=== PATIENT | female | born 1980 | race Two or more races ===

== ENCOUNTER 2016-12-25 10:49 | Inpatient (IN) | payer OTHER ==
[2016-12-24 11:19] VITALS: BMI 42.3
[2016-12-25] MEDS ORDERED: ROCURONIUM BROMIDE 50 MG/5 ML VIAL ONE ×2 (11:16→12:47)
[2016-12-25] MEDS ORDERED: MIDAZOLAM HCL 2 MG/2 ML SINGLE DOSE VIAL ONE (11:17)
[2016-12-25] MEDS ORDERED: DEXAMETHASONE SOD PHOSPHATE 4 MG/1 ML VIAL ONE (11:22)
[2016-12-25] MEDS ORDERED: KETOROLAC TROMETHAMINE 30 MG/1 ML VIAL ONE (11:22)
[2016-12-25] MEDS ORDERED: ceFAZolin SODIUM 1 GM VIAL ONE (11:22)
--- NOTE | 2016-12-25 11:37 | HP ---
History & Physical Update - History History: No Change - Physical Physical: No Change - Assessment Assessment: No Change - Plan Plan: No Change Currently as noted:: Laparoscopic vertical sleeve gastrectomy, fundoplication, EGD
[2016-12-25] MEDS ORDERED: ceFAZolin SODIUM 1 GM VIAL IVPB ONE (12:30)
[2016-12-25] MEDS ORDERED: HYDROmorphone HCL/PF 1 MG/ML VIAL (FOR PYXIS CHARGING ONLY) ONE (13:55)
[2016-12-25] MEDS ORDERED: BUPIVACAINE HCL/PF 0.5% (5MG/ML) 10 ML VIAL ONE (14:35)
[2016-12-25] MEDS ORDERED: BUPIVACAINE HCL/PF 0.5% (5MG/ML) 10 ML VIAL IJ ONE (14:38)
[2016-12-25] MEDS ORDERED: METOPROLOL TARTRATE 5 MG/5 ML VIAL ONE (14:39)
[2016-12-25] MEDS ORDERED: ONDANSETRON 4 MG/2 ML VIAL IVPUSH PRN (14:56)
[2016-12-25] MEDS ORDERED: PROMETHAZINE HCL 25 MG/1 ML VIAL IVPUSH PRN (14:56)
[2016-12-25] MEDS ORDERED: HYDROmorphone HCL CARPU-JECT 1 MG/1 ML DISP.SYRIN IVPB PRN (15:29)
--- NOTE | 2016-12-25 15:29 | OP ---
Operative Note - Note: Operative Date: 12/25/16 Pre-Operative Diagnosis: Morbid obesity. GERD Operation: Laparoscopic vertical sleeve gastrectomy, hiatal hernia repiar, 270 degree fundoplication, upper endocscopy, wedge liver biopsy Findings: No leak, no obstruction Post-Operative Diagnosis: Other (Morbid obesity, GERD, hepatomegaly) Surgeon: Jerry Rea Assembler Carbon Brushes: Karlos Leal Anesthesia: General Specimens Removed: Greater curvature of the stomach, wedge biopsy left lobe of the liver Estimated Blood Loss (mls): 50 Drains & Tubes with Location: 40 Fr Bougie Operative Report Dictated: Yes
[2016-12-25] MEDS ORDERED: ACETAMINOPHEN 1000 MG/100 ML VIAL (NON FORMULARY) IVPB SCH (15:30)
[2016-12-25] MEDS ORDERED: SODIUM CHLORIDE 1,000 ML IV SCH (15:30)
[2016-12-25] MEDS ORDERED: ONDANSETRON 4 MG/2 ML VIAL IVPB SCH (15:30)
[2016-12-25] MEDS ORDERED: METOCLOPRAMIDE HCL INJECTION 10 MG/2 ML VIAL IVPB SCH (15:30)
[2016-12-25] MEDS ORDERED: HYDROmorphone HCL CARPU-JECT 2 MG/1 ML DISP.SYRIN ONE ×2 (15:31→16:36)
[2016-12-25] MEDS: HYDROmorphone HCL CARPU-JECT 1 MG/1 ML DISP.SYRIN IVPUSH PRN ×3 (15:32→16:35)
[2016-12-25] MEDS ORDERED: ACETAMINOPHEN 1000 MG/100 ML VIAL (NON FORMULARY) IVPB ONE (15:45)
[2016-12-25 16:21] LABS: ANION GAP 10 (8-16); CALCIUM 9.2 mg/dL (8.5-10.1); CO2 23 mmol/L (21-32); CREATININE 0.8 mg/dL (0.55-1.02); GLUCOSE,RANDOM 148 mg/dL (74-106)
[2016-12-25 16:29] LABS: BASOPHIL 0.2 % (0-2.0); EOSINOPHIL 0.1 % (0-4.5); MCH 29.6 pg (25.7-33.7); MCHC 32.9 g/dl (32.0-36.0); NEUTROPHILS 93.4 % (42.8-82.8); PLATELET COUNT 258 K/MM3 (134-434); RDW 13.3 % (11.6-15.6); WHITE BLOOD COUNT 16.4 K/mm3 (4.0-10.0)
[2016-12-25] MEDS: SODIUM CHLORIDE 1,000 ML IV SCH ×2 (17:00→21:22)
[2016-12-25] MEDS: HYDROmorphone HCL CARPU-JECT 1 MG/1 ML DISP.SYRIN IVPB PRN ×2 (18:19→21:11)
[2016-12-25] MEDS: ONDANSETRON 4 MG/2 ML VIAL IVPB SCH (20:10)
[2016-12-25] MEDS: ACETAMINOPHEN 1000 MG/100 ML VIAL (NON FORMULARY) IVPB SCH (21:50)
[2016-12-25] MEDS ORDERED: ENOXAPARIN NA (PORCINE) 40 MG/0.4 ML DISP.SYRIN SQ SCH (22:00)
[2016-12-25] MEDS ORDERED: FAMOTIDINE 20 MG/50 ML IVPB 50 ML IVPB SCH (22:00)
[2016-12-25] MEDS: METOCLOPRAMIDE HCL INJECTION 10 MG/2 ML VIAL IVPB SCH (22:25)
[2016-12-25] MEDS: ENOXAPARIN NA (PORCINE) 40 MG/0.4 ML DISP.SYRIN SQ SCH (22:50)
[2016-12-25] MEDS: FAMOTIDINE 20 MG/50 ML IVPB 50 ML IVPB SCH (22:51)
[2016-12-26] MEDS: ONDANSETRON 4 MG/2 ML VIAL IVPB SCH ×6 (00:01→20:31)
[2016-12-26] MEDS: HYDROmorphone HCL CARPU-JECT 1 MG/1 ML DISP.SYRIN IVPB PRN ×3 (00:42→21:26)
[2016-12-26] MEDS: ACETAMINOPHEN 1000 MG/100 ML VIAL (NON FORMULARY) IVPB SCH ×2 (02:38→10:53)
[2016-12-26] MEDS: METOCLOPRAMIDE HCL INJECTION 10 MG/2 ML VIAL IVPB SCH ×4 (04:01→22:14)
[2016-12-26 07:29] LABS: MCH 30.5 pg (25.7-33.7); MCHC 34.2 g/dl (32.0-36.0); MEAN PLT VOLUME 7.6 fl (7.5-11.1); PLATELET COUNT 281 K/MM3 (134-434); RDW 13.2 % (11.6-15.6); WHITE BLOOD COUNT 15.8 K/mm3 (4.0-10.0)
[2016-12-26 08:35] LABS: ALBUMIN 3.6 g/dl (3.4-5.0); ALK PHOS 108 U/L (45-117); ANION GAP 7 (8-16); BILIRUBIN,TOTAL 0.5 mg/dL (0.2-1.0); CALCIUM 8.9 mg/dL (8.5-10.1); CO2 25 mmol/L (21-32); CREATININE 0.6 mg/dL (0.55-1.02); GLUCOSE,RANDOM 69 mg/dL (74-106); SGOT/AST 144 U/L (15-37); SGPT/ALT 131 U/L (12-78); TOT PROT 7.7 g/dl (6.4-8.2)
[2016-12-26] MEDS: ENOXAPARIN NA (PORCINE) 40 MG/0.4 ML DISP.SYRIN SQ SCH ×2 (10:07→22:45)
[2016-12-26] MEDS: FAMOTIDINE 20 MG/50 ML IVPB 50 ML IVPB SCH ×2 (10:07→22:45)
--- NOTE | 2016-12-26 10:44 | PN ---
Progress Note (short form) - Note Progress Note: POD 1 Laparoscopic vertical sleeve gastrectomy, fundoplication, EGD, liver biopsy Pain controlled No nausea Vital Signs Period Temp Pulse Resp BP Sys/Mccracken Pulse Ox Last 24 Hr 97.5 F-98.3 F 72-115 16-20 112-153/61-101 94-100 Abd soft, dressings dry and intact WBC 15.8 K/mm3 (4.0-10.0) H 12/26/16 05:35 RBC 4.20 M/mm3 (3.60-5.2) 12/26/16 05:35 Hgb 12.8 GM/dL (10.7-15.3) 12/26/16 05:35 Hct 37.4 % (32.4-45.2) 12/26/16 05:35 MCV 89.0 fl (80-96) 12/26/16 05:35 MCH 30.5 pg (25.7-33.7) 12/26/16 05:35 MCHC 34.2 g/dl (32.0-36.0) 12/26/16 05:35 RDW 13.2 % (11.6-15.6) 12/26/16 05:35 Plt Count 281 K/MM3 (134-434) 12/26/16 05:35 MPV 7.6 fl (7.5-11.1) 12/26/16 05:35 Neutrophils % 93.4 % (42.8-82.8) H D 12/25/16 15:30 Lymphocytes % 5.1 % (8-40) L D 12/25/16 15:30 Monocytes % 1.2 % (3.8-10.2) L 12/25/16 15:30 Eosinophils % 0.1 % (0-4.5) D 12/25/16 15:30 Basophils % 0.2 % (0-2.0) 12/25/16 15:30 Sodium 136 mmol/L (136-145) 12/26/16 05:35 Potassium 4.5 mmol/L (3.5-5.1) 12/26/16 05:35 Chloride 104 mmol/L (98-107) 12/26/16 05:35 Carbon Dioxide 25 mmol/L (21-32) 12/26/16 05:35 Anion Gap 7 (8-16) L 12/26/16 05:35 BUN 7 mg/dL (7-18) D 12/26/16 05:35 Creatinine 0.6 mg/dL (0.55-1.02) D 12/26/16 05:35 Creat Clearance w eGFR > 60 (>60) 12/26/16 05:35 Random Glucose 69 mg/dL (74-106) L D 12/26/16 05:35 Calcium 8.9 mg/dL (8.5-10.1) 12/26/16 05:35 Total Bilirubin 0.5 mg/dL (0.2-1.0) 12/26/16 05:35 AST 144 U/L (15-37) H 12/26/16 05:35 ALT 131 U/L (12-78) H 12/26/16 05:35 Alkaline Phosphatase 108 U/L (45-117) 12/26/16 05:35 Total Protein 7.7 g/dl (6.4-8.2) 12/26/16 05:35 Albumin 3.6 g/dl (3.4-5.0) 12/26/16 05:35 UGI- no leak/obstruction Clears OOB
[2016-12-26] MEDS: SODIUM CHLORIDE 1,000 ML IV SCH (10:48)
--- NOTE | 2016-12-26 11:41 | PN ---
Progress Note (short form) - Note Progress Note: Post op day#1.S/P Laproscopic gastric sleeve,EGD and fundoplication under GA uneventful.Patient stable.No any anesthesia related problem.Patient DC from the anesthesia care.
[2016-12-26] MEDS: oxyCODONE HCL 5 MG TABLET PO PRN ×2 (14:50→18:25)
[2016-12-26] MEDS: ACETAMINOPHEN 325 MG TABLET (FP) PO PRN ×2 (14:52→18:27)
[2016-12-27] MEDS: ONDANSETRON 4 MG/2 ML VIAL IVPB SCH ×3 (00:04→06:43)
[2016-12-27] MEDS: oxyCODONE HCL 5 MG TABLET PO PRN ×2 (02:51→09:16)
[2016-12-27] MEDS: METOCLOPRAMIDE HCL INJECTION 10 MG/2 ML VIAL IVPB SCH ×2 (02:58→09:18)
[2016-12-27] MEDS: ACETAMINOPHEN 325 MG TABLET (FP) PO PRN ×2 (02:58→09:16)
[2016-12-27] MEDS: ENOXAPARIN NA (PORCINE) 40 MG/0.4 ML DISP.SYRIN SQ SCH (09:15)
[2016-12-27] MEDS: FAMOTIDINE 20 MG/50 ML IVPB 50 ML IVPB SCH (09:15)
[2016-12-27] MEDS: SODIUM CHLORIDE 1,000 ML IV SCH (09:17)
--- NOTE | 2016-12-27 09:26 | OP ---
DATE OF OPERATION: 12/25/2016 SURGEON: Jerry Rea MD MECHANICAL CAR CHECKER: ALISHA Rivera PREOPERATIVE DIAGNOSES: Morbid obesity, gastroesophageal reflux disease. POSTOPERATIVE DIAGNOSES: Morbid obesity, gastroesophageal reflux disease, hepatomegaly. PROCEDURE: Laparoscopic vertical sleeve gastrectomy, laparoscopic hiatal hernia repair, laparoscopic 270-degree fundoplication, upper endoscopy, and wedge liver biopsy of the left lobe of the liver. ESTIMATED BLOOD LOSS: 50 mL DRAINS: None. ANESTHESIA: GET. SPECIMEN: Greater curvature of the stomach and wedge biopsy of the left lobe of the liver. INSTRUMENTS USED: A 40-[place] bougie. REASON FOR PROCEDURE: This is a 36-year-old female who presented to the office for weight loss options. After describing the different weight loss options, she wanted to proceed with a vertical sleeve gastrectomy. In addition, she had a history of reflux on chronic medication. Because of this, she was consented for a laparoscopic vertical sleeve gastrectomy, a laparoscopic hiatal hernia repair, laparoscopic fundoplication, and an upper endoscopy. In addition, she was consented for a possible liver biopsy as well for possible hepatomegaly. The risks and benefits of the procedure were explained. These included bleeding, infection, hernia, AR, DVT, PE, injury to surrounding abdominal structures, vessel injury, nerve injury, esophageal injury, gastric injury, injury to the colon, spleen, diaphragm, liver , obstruction, anastomotic leak, weight regain, vitamin deficiency, persistent reflux, dysphagia as some of the complications. In addition, she was explained that because of the fundoplication needed for her reflux, a partial vertical sleeve gastrectomy was to be performed so that the top portion of the fundus of the stomach could be used for the fundoplication. She understood. DESCRIPTION OF PROCEDURE: The patient was placed supine on the operating room table. She underwent general endotracheal intubation. A Cummins catheter was inserted by the nursing staff. The arms were brought out at 90 degrees and secured with Kerlix dressing. A footboard was placed at the edge of the bed, and the legs were secured laterally. The abdomen was prepped and draped in the usual sterile fashion. A timeout was performed. Superior to the left of the umbilicus, an incision was made with a 15-blade scalpel. Veress needle was inserted. Pneumoperitoneum was established. The Veress needle was then removed, and a 5-mm optical trocar was placed under direct visualization with a laparoscope. A 5-mm trocar was placed in the left subcostal region. Another 5- mm trocar was placed in the right subcostal region. A 15-mm trocar was placed in the supraumbilical region. The original 5-mm trocar was removed, and a 12-mm trocar inserted in its place. Stab wound was made in the subxiphoid area and Jacquelyn clamp inserted to dilate the tract. A liver retractor was inserted. The patient was placed in steep reverse Trendelenburg, and the liver retracted towards the anterior abdominal wall. This was secured to the post to the side of the bed. The initial dissection was performed towards the hiatus. The left and right kenyatta were both identified. Dissection was performed, clearing the surrounding contents to open up the hiatus to look for a hernia. A small hernia defect was noted. This was closed using a 2-0 Ethibond suture with the Endostitch in figure-of-8 fashion. At this point, the pylorus was identified, and 6 cm proximal to the pylorus, entry into the lesser sac was obtained using the LigaSure device. The greater curvature of the stomach was freed from its surrounding structures using the LigaSure device. LigaSure was used to ligate all short gastric vessels and free the stomach towards the gastrosplenic and gastrophrenic ligaments. Care was taken to stay away from the stomach, especially towards the mid- and upper portion of the fundus in order to maintain viability for the fundoplication. The fundoplication was then performed. The pars flaccida was identified and opened using electrocautery. The caudate lobe was elevated, and the IVC noted. Medial to this, the right kenyatta was identified. Medial to the right kenyatta, the overlying peritoneum was scored and the tract dilated. A bowel grasper was placed within the tract posterior to the stomach and exteriorized near the gastrosplenic ligament. This was again dilated. Portion of the stomach was then grasped and brought out posteriorly to the right side for the fundoplication. This was done so that there was no tension on the stomach. A 270-degree fundoplication was then performed. The stomach was secured to the diaphragm both to the right and left using a 2-0 Ethibond suture. The fundoplication was noted to be fully intact. A 40-[place] bougie was then attempted to be placed by Anesthesia. However, there was difficulty in placing the bougie. On inspection of the hiatus, it was noted that the hiatal repair was too tight with the fundoplication. Therefore, the figure-of-8 suture, that was used to repair the hiatus, was cut and removed. The 40-[place] bougie was then able to be passed. This was placed to the distal stomach and then placed to suction. The vertical sleeve gastrectomy was then performed. The stomach was stapled starting from the area where the initial entrance to the lesser sac was obtained. Two black load staplers were used with the Endo NIKKY stapler. Care was taken to stay away from the angularis. The remainder of the greater curvature for the sleeve was transected using purple staplers with the Endo NIKKY stapler. Again, a loose vertical sleeve gastrectomy was performed because of the needed fundus for the fundoplication. In order to do so, the stapling of the stomach proximally was extended further laterally to the left to avoid the previous wrap. The entirety of the staple line was inspected, and a small area of bleeding was noted. This was secured using Endostitch with a 2-0 Ethibond suture. No further bleeding of the staple line was noted. A leak test was then performed and an upper endoscopy performed. This was done to look for obstruction as well as a leak. The stomach was clamped proximally to the staple line, and irrigation solution placed in the left upper quadrant. The endoscope was placed within the mouth, and the entirety of the esophagus, the GE junction, and the stomach to and beyond the level of the pylorus was identified. The staple line was noted to be fully intact without leak, and there was no evidence of any obstruction. At this point, the endoscope was used to suction the remainder of the stomach and was removed from the mouth. The fluid within the left upper quadrant and within the abdomen was suctioned. Again, hemostasis noted. The liver was noted to be enlarged, and therefore, a wedge liver biopsy was performed. The liver retractor was slightly loosened, and a portion of the left lobe of the liver was grasped. Using electrocautery, a wedge of liver was excised and removed from the abdomen. Hemostasis of the area was performed using electrocautery. The abdomen was again inspected, and again, hemostasis noted. The liver retractor was removed under direct visualization. The 15-mm trocar was removed, and the greater curvature of the stomach was grasped with a sponge stick rogel without the sponge and removed from the abdominal cavity as specimen. A Pk-Meir device with a 0 Vicryl suture was used to close the fascia. The 15-mm trocar was then reinserted and the 12-mm trocar removed. The Pk- Meir device with a 0 Vicryl suture was used to close the fascia. Pneumoperitoneum was then desufflated. All trocars were removed. The 2 fascial sutures were secured. Next, 3-0 Vicryl sutures were used to close the deep subcutaneous tissue at these 2 sites. Marcaine was injected at all incision sites, and all incisions were closed using 4-0 Biosyn. Sterile dressings were applied. The patient tolerated the procedure well and was transferred to the recovery room in stable condition. Edda [id number] MTDD
[2016-12-27 11:55] VITALS: BP 138/87; PULSE 84; TEMP 97.8
--- NOTE | 2016-12-31 08:48 | PATH ---
Surgical Pathology Report Patient Name: BRE BAUMANN Med. Rec. #: [id number] /Age/Gender: 1980 (Age: 36) / F Account: [id number] Location: 4 W TELEMETRY U Taken: 12/25/2016 Received: 12/29/2016 Reported: 12/31/2016 Physicians: Jerry Rea M.D. Specimen(s) Received A: GREATER CURVATURE OF STOMACH B: LOWER LOBE LIVER BIOPSY Clinical History Morbid obesity Final Diagnosis A. STOMACH, GREATER CURVATURE, LAPAROSCOPIC VERTICAL SLEEVE GASTRECTOMY: PORTION OF STOMACH WITH MODERATE CHRONIC GASTRITIS. IMMUNOSTAIN FOR H. PYLORI IS NEGATIVE FOR ORGANISMS. B. LIVER, LEFT LOWER LOBE, WEDGE BIOPSY: STEATOHEPATITIS, MILD TO MODERATELY ACTIVE; STEATOSIS (~75%). PERIVENULAR, PERISINUSOIDAL, PORTAL AND PERIPORTAL FIBROSIS PRESENT (LIMITED FIBROSIS ASSESSMENT IN SUBCAPSULAR BIOPSY). SEE COMMENT. Comment: While the assessment of fibrosis in the subcapsular specimens is limited, perivenular, portal and periportal fibrosis is seen. The portal tracts show patchy mild inflammation comprised of lymphocytes, histiocytes and scattered eosinophils. No increase in plasma cells is seen. No interface activity is seen. No bile duct injury or ductular reaction is noted. No portal granulomas are identified. The lobules show patchy inflammation comprised of lymphocytes and neutrophils. Scattered acidophil bodies are noted. Focal hepatocyte ballooning is seen. Focal Apryl hyalin is identified. No lobular granulomas are identified. There is predominantly macrovesicular steatosis present an approximately 75% of the biopsy material. Trichrome stain highlights perivenular, portal and periportal fibrosis. Iron stain shows no siderosis. Overall the findings of steatohepatitis, with mild to moderate activity, steatosis (~75%) and perivenular, perisinusoidal, portal and periportal fibrosis (stage 2 of 4, although with limited fibrosis assessment in subcapsular tissue). The etiology of steatohepatitis and steatosis include alcohol and non-alcohol related liver injury, such as drug/toxin and metabolic conditions. Clinical and serological correlations are suggested. Electronically Signed Eulogio Roemro M.D. Gross Description A. Received in formalin, labeled "greater curvature of stomach" is a 52 gram, 13.0 x 3.3 x 2.5 cm. portion of stomach with a stapled margin of resection. The serosa is bullard-seo with minimal attached fat. The mucosa is bullard-pink with normal folds. No mucosal masses are identified. Operations Representative sections are submitted in one cassette. B. Received in formalin labeled "lower lobe liver biopsy" is a 3.5 x 1.9 x 0.8 cm irregular portion of soft tissue, consistent with a liver biopsy. The specimen is sectioned and entirely submitted in 3 cassettes. 12/29/201612/29/2016
== END 2016-12-27 10:12 | disposition home or self-care (01) | DRG 405 ==
LOC: JSAMEDAYSX 10:49 → J4W 17:30
PROVIDERS: ADMIT Surgery; ATTEND Surgery
PROC: 0FB24ZX Excision of Left Lobe Liver, Percutaneous Endoscopic Approach, Diagnostic (ICD-10-PCS; 2016-12-25)
PROC: 0DB64ZZ Excision of Stomach, Percutaneous Endoscopic Approach (ICD-10-PCS; principal; 2016-12-25 13:00)
PROC: 0BQS4ZZ (ICD-10-PCS; 2016-12-25 13:00)
PROC: 0DV44ZZ Restriction of Esophagogastric Junction, Percutaneous Endoscopic Approach (ICD-10-PCS; 2016-12-25 13:00)
PROC: 0WJP8ZZ Inspection of Gastrointestinal Tract, Via Natural or Artificial Opening Endoscopic Approach (ICD-10-PCS; 2016-12-25 13:00)
DX: E66.01 Morbid (severe) obesity due to excess calories (principal); Z68.41 Body mass index [BMI] 40.0-44.9, adult; K21.9 Gastro-esophageal reflux disease without esophagitis; K44.9 Diaphragmatic hernia without obstruction or gangrene; R16.0 Hepatomegaly, not elsewhere classified
CPT/HCPCS: 36415; 74241-TC; 80048; 80053; 84703; 85025; 85027; 88305-TC; 88307-TC; 94010; 94760

== ENCOUNTER 2020-11-09 20:31 | Emergency (ER) | payer OTHER ==
[2020-11-09 20:43] VITALS: BP 101/62; PULSE 108; TEMP 98.8; BMI 22.6
[2020-11-09 22:03] LABS: PH,URINE 6.5 (5.0-8.0); URINE APPEARANCE CLEAR; URINE BILIRUBIN NEGATIVE (NEGATIVE); URINE COLOR YELLOW; URINE GLUCOSE (UA) NEGATIVE (NEGATIVE); URINE KETONE NEGATIVE (NEGATIVE); URINE LEUK ESTERASE NEGATIVE (NEGATIVE); URINE NITRITE NEGATIVE (NEGATIVE); URINE PROTEIN NEGATIVE (NEGATIVE); URINE UROBILINOGEN 0.2 mg/dL (0.2-1.0)
[2020-11-09 22:06] LABS: HCG,QUALITATIVE URINE Negative
== END 2020-11-09 23:29 | disposition home or self-care (01) ==
LOC: JER 20:31
DX: B34.9 Viral infection, unspecified (principal)
CPT/HCPCS: 81003; 84703; 87086; 87804; 87880; 99284-25; C9803; U0003; U0005

== ENCOUNTER 2020-11-12 12:52 | Emergency (ER) | payer OTHER ==
[2020-11-12 13:04] VITALS: TEMP 99.1; BMI 21.7
[2020-11-12] MEDS ORDERED: SODIUM CHLORIDE 0.9% 500 ML INFUS.BAG IV ONE (13:27)
[2020-11-12 14:01] LABS: BASO % 0.4 % (0-2.0); EOS % 0.1 % (0-4.5); HEMATOCRIT 35.7 % (32.4-45.2); HEMOGLOBIN 11.8 GM/dL (10.7-15.3); LYMPH % 8.3 % (8-40); MEAN CELL VOLUME 87.8 fl (80-96); MEAN PLT VOLUME 8.7 fl (7.5-11.1); MONO % 8.5 % (3.8-10.2); NEUT % 82.7 % (42.8-82.8); PLATELET COUNT 120 10^3/uL (134-434); RBC 4.06 M/mm3 (3.60-5.2); RDW 14.6 % (11.6-15.6); WHITE BLOOD COUNT 5.9 K/mm3 (4.0-10.0)
[2020-11-12] MEDS ORDERED: KETOROLAC TROMETHAMINE 30 MG/1 ML VIAL IM ONE (14:08)
[2020-11-12] MEDS ORDERED: KETOROLAC TROMETHAMINE 30 MG/1 ML VIAL ONE (14:21)
[2020-11-12 14:23] LABS: CALCIUM 9.1 mg/dL (8.5-10.1)
[2020-11-12 14:24] LABS: ALBUMIN 3.4 g/dl (3.4-5.0); BLOOD UREA NITROGEN 15.8 mg/dL (7-18)
[2020-11-12 14:27] LABS: CREATININE 0.5 mg/dL (0.55-1.3)
[2020-11-12 14:28] LABS: BILIRUBIN,TOTAL 0.4 mg/dL (0.2-1)
[2020-11-12 14:29] LABS: TOT PROT 7.2 g/dl (6.4-8.2)
[2020-11-12 14:42] LABS: ERYTHROCYTE SEDIMENTATION RATE 38 mm/hr (0-20)
[2020-11-12 15:05] LABS: INR 1.05 (0.83-1.09); PROTHROMBIN TIME (PATIENT) 12.7 SEC (9.7-13.0)
[2020-11-12 16:18] VITALS: BP 110/71; PULSE 89
== END 2020-11-12 16:18 | disposition home or self-care (01) ==
LOC: JER 12:52
PROC: 3E0233Z Introduction of Anti-inflammatory into Muscle, Percutaneous Approach (ICD-10-PCS; principal; 2020-11-12)
DX: M54.5 Low back pain (principal); M79.605 Pain in left leg; M79.604 Pain in right leg
CPT/HCPCS: 36415; 80053; 85025; 85610; 85651; 85730; 86140; 99284-25

== ENCOUNTER 2021-05-16 18:12 | Emergency (ER) | payer OTHER ==
[2021-05-16 18:51] VITALS: BP 117/81; PULSE 80; TEMP 98.2; BMI 21.9
== END 2021-05-16 20:44 | disposition home or self-care (01) ==
LOC: JER 18:12
DX: J06.9 Acute upper respiratory infection, unspecified (principal)
CPT/HCPCS: 71046-TC-FY; 87804; 99284-25; C9803; U0003; U0005

== ENCOUNTER 2024-02-28 11:58 | Inpatient (IN) | payer OTHER ==
[2024-02-28 12:04] VITALS: BMI 23.8
[2024-02-28] MEDS ORDERED: ONDANSETRON 4 MG/2 ML VIAL ONE (13:20)
[2024-02-28] MEDS: ONDANSETRON 4 MG/2 ML VIAL IVPUSH ONE (13:44)
[2024-02-28] MEDS ORDERED: chlordiazePOXIDE HCL 25 MG CAPSULE ONE (13:45)
[2024-02-28] MEDS: chlordiazePOXIDE HCL 25 MG CAPSULE PO ONE (13:48)
[2024-02-28 13:50] LABS: VENOUS BASE EXCESS 0.3 mmol/L (-2-2); VENOUS O2 SATURATION 31.6 % (70-80); VENOUS PCO2 33.8 mmHg (38-52); VENOUS PH 7.459 (7.310-7.410)
[2024-02-28 13:51] LABS: BASO % 0.3 % (0-2.0); EOS % 0.5 % (0-4.5); HEMATOCRIT 43.1 % (32.4-45.2); HEMOGLOBIN 14.7 GM/dL (10.7-15.3); LYMPH % 11.6 % (8-40); MCHC 34.1 g/dl (32.0-36.0); MEAN PLT VOLUME 7.4 fl (7.5-11.1); MONO % 3.4 % (3.8-10.2); NEUT % 84.2 % (42.8-82.8); PLATELET COUNT 307 10^3/uL (134-434); RBC 4.58 M/mm3 (3.60-5.2); RDW 13.5 % (11.6-15.6); WHITE BLOOD COUNT 9.8 K/mm3 (4.0-10.0)
[2024-02-28 14:19] LABS: CALCIUM 9.9 mg/dL (8.5-10.1)
[2024-02-28 14:20] LABS: ALBUMIN 4.4 g/dl (3.4-5.0); BLOOD UREA NITROGEN 16.2 mg/dL (7-18)
[2024-02-28 14:23] LABS: CREATININE 0.7 mg/dL (0.55-1.3)
[2024-02-28 14:24] LABS: BILIRUBIN,TOTAL 0.8 mg/dL (0.2-1); TOT PROT 8.6 g/dl (6.4-8.2)
[2024-02-28 15:19] LABS: URINE APPEARANCE CLEAR; URINE BILIRUBIN NEGATIVE (NEGATIVE); URINE COLOR YELLOW; URINE GLUCOSE (UA) NEGATIVE (NEGATIVE); URINE KETONE TRACE (NEGATIVE); URINE LEUK ESTERASE NEGATIVE (NEGATIVE); URINE NITRITE NEGATIVE (NEGATIVE); URINE PROTEIN NEGATIVE (NEGATIVE)
[2024-02-28] MEDS ORDERED: ACETAMINOPHEN 325 MG TABLET (FP) ONE (16:20)
[2024-02-28] MEDS: ACETAMINOPHEN 325 MG TABLET (FP) PO ONE (16:24)
[2024-02-28] MEDS ORDERED: ACETAMINOPHEN INJECTION 100 ML ONE (18:48)
[2024-02-28] MEDS ORDERED: MAG HYDROX/AL HYDROX/SIMETH 30 ML UNIT-DOSE CUP ONE (18:49)
[2024-02-28] MEDS ORDERED: FAMOTIDINE 20 MG/50 ML IVPB 20 MG/50 ML MG IVPB ONE (18:49)
[2024-02-28] MEDS: FAMOTIDINE 20 MG/50 ML IVPB 20 MG/50 ML MG IVPB ONE (19:44)
[2024-02-28] MEDS: ACETAMINOPHEN 1000 MG/100 ML BAG IVPB ONE (19:44)
[2024-02-28] MEDS: MAG HYDROX/AL HYDROX/SIMETH 30 ML UNIT-DOSE CUP PO ONE (19:44)
[2024-02-28] MEDS ORDERED: MONTELUKAST NA 10 MG TABLET ONE (22:29)
[2024-02-28] MEDS ORDERED: FAMOTIDINE 20 MG TABLET ONE (22:29)
[2024-02-28] MEDS ORDERED: chlordiazePOXIDE HCL 10 MG CAPSULE ONE (22:29)
[2024-02-28] MEDS: DEXTROSE 5%-0.45% SALINE 1,000 ML IV SCH (22:46)
[2024-02-28] MEDS: MONTELUKAST NA 10 MG TABLET PO SCH (22:47)
[2024-02-28] MEDS: FAMOTIDINE 20 MG TABLET PO SCH (22:47)
[2024-02-28] MEDS: chlordiazePOXIDE HCL 10 MG CAPSULE PO SCH (22:47)
[2024-02-29 08:17] VITALS: BP 168/75; PULSE 64; RESP 18; TEMP 97.6
[2024-02-29 08:32] LABS: COCAINE, UR NEGATIVE (NEGATIVE); METHADONE, UR NEGATIVE (NEGATIVE); OPIATES, URI NEGATIVE (NEGATIVE); URINE BARBITURATES NEGATIVE (NEGATIVE)
[2024-02-29 08:33] LABS: PHENCYCLIDINE,URINE NEGATIVE (NEGATIVE); URINE AMPHETAMINES NEGATIVE (NEGATIVE)
[2024-02-29 08:38] LABS: URINE BENZODIAZEPINES POSITIVE (NEGATIVE)
[2024-02-29 08:57] LABS: BASO % 0.6 % (0-2.0); EOS % 4.3 % (0-4.5); HEMATOCRIT 37.4 % (32.4-45.2); HEMOGLOBIN 12.7 GM/dL (10.7-15.3); LYMPH % 37.8 % (8-40); MCH 32.1 pg (25.7-33.7); MCHC 33.9 g/dl (32.0-36.0); MEAN CELL VOLUME 94.8 fl (80-96); MEAN PLT VOLUME 7.8 fl (7.5-11.1); MONO % 7.9 % (3.8-10.2); NEUT % 49.4 % (42.8-82.8); PLATELET COUNT 246 10^3/uL (134-434); RBC 3.94 M/mm3 (3.60-5.2); RDW 13.2 % (11.6-15.6); WHITE BLOOD COUNT 5.6 K/mm3 (4.0-10.0)
[2024-02-29 09:09] LABS: POTASSIUM 4.1 mmol/L (3.5-5.1)
[2024-02-29 09:13] LABS: ALBUMIN 3.6 g/dl (3.4-5.0); CALCIUM 9.2 mg/dL (8.5-10.1)
[2024-02-29 09:14] LABS: BLOOD UREA NITROGEN 10.8 mg/dL (7-18)
[2024-02-29 09:17] LABS: CREATININE 0.6 mg/dL (0.55-1.3)
[2024-02-29 09:18] LABS: BILIRUBIN,TOTAL 0.8 mg/dL (0.2-1); TOT PROT 6.9 g/dl (6.4-8.2)
[2024-02-29] MEDS ORDERED: chlordiazePOXIDE HCL 10 MG CAPSULE ONE (09:30)
[2024-02-29] MEDS ORDERED: LISINOPRIL 10 MG TABLET PO SCH (10:00)
== END 2024-02-29 13:29 | disposition home or self-care (01) | DRG 351 ==
LOC: JER 11:58 → JERBED 14:31 → OBSVTOIN 20:07
PROVIDERS: ADMIT Internal Medicine; ATTEND Internal Medicine
DX: T14.91XA Suicide attempt, initial encounter (principal); F31.4 Bipolar disorder, current episode depressed, severe, without psychotic features; F10.239 Alcohol dependence with withdrawal, unspecified; F17.210 Nicotine dependence, cigarettes, uncomplicated; F41.9 Anxiety disorder, unspecified; M79.7 Fibromyalgia; R06.00 Dyspnea, unspecified; R11.0 Nausea; X83.8XXA Intentional self-harm by other specified means, initial encounter; Y93.9 Activity, unspecified; Y92.89 Other specified places as the place of occurrence of the external cause; Y99.9 Unspecified external cause status
CPT/HCPCS: 36415; 80053; 80178; 80307; 81003; 82803; 85025; 93005; 93010; 99285-25; G0378; J0131